=== PATIENT | male | born 1975 | race Two or more races ===

== ENCOUNTER 2018-03-26 09:46 | Emergency (ER) | payer OTHER ==
[2018-03-26 09:55] VITALS: BP 144/79
--- NOTE | 2018-03-26 10:23 | RAD ---
HISTORY: injured R ankle after fall COMPARISONS: None VIEWS: 3, Frontal, lateral, and oblique views of the right ankle FINDINGS: BONE DENSITY: Normal. BONES: There is no displaced fracture. JOINTS: There is no arthropathy. There is a tibiotalar effusion ALIGNMENT: There is no dislocation. SOFT TISSUES: There is mild circumferential soft tissue swelling. OTHER FINDINGS: None. IMPRESSION: JOINT EFFUSION. NO ACUTE OSSEOUS INJURY. IF SYMPTOMS PERSIST, RECOMMEND REPEAT IMAGING.
--- NOTE | 2018-03-26 11:16 | ED ---
Lower Extremity - HPI Summary HPI Summary: all gone patient is a 43-year-old male presenting to the ED after a fall last evening down the stairs injuring his right lateral ankle. He endorses a mild amount of swelling, denies ecchymosis. He remains ambulatory. Pain is currently rated a 5/10, constant and throbbing. Denies any other injuries at this time. He has never injured the ankle before. Motrin has helped recently. - History of Current Complaint Chief Complaint: EDExtremityLower Stated Complaint: RT ANKLE PAIN Time Seen by Provider: 03/26/18 09:59 Hx Obtained From: Patient Onset of Pain: Minutes Onset/Duration: Minutes Severity Initially: Moderate Severity Currently: Moderate Pain Intensity: 7 Pain Scale Used: 0-10 Numeric Timing: Constant Location: Is Discrete @ - left lateral ankle Character Of Pain: Aching Associated Signs And Symptoms: Positive: Swelling Aggravating Factor(s): Standing, Ambulation Alleviating Factor(s): Rest Able to Bear Weight: Yes - Risk Factors Gout Risk Factors: Age Over 40 DVT Risk Factors: Negative Septic Arthritis Risk Factor: Negative - Allergies/Home Medications Allergies/Adverse Reactions: Allergies Allergy/AdvReac Type Severity Reaction Status Date / Time Penicillins Allergy Hives Verified 03/26/18 09:52 PMH/Surg Hx/FS Hx/Imm Hx Previously Healthy: Yes Endocrine/Hematology History: Denies: Hx Diabetes Cardiovascular History: Denies: Hx Hypertension, Hx Pacemaker/ICD Respiratory History: Reports: Hx Sleep Apnea Denies: Hx Asthma Sensory History: Denies: Hx Hearing Aid Psychiatric History: Denies: Hx Panic Disorder - Surgical History Surgery Procedure, Year, and Place: APPY - Immunization History Hx Pertussis Vaccination: No Immunizations Up to Date: Unable to Obtain/Confirm Infectious Disease History: No Infectious Disease History: Denies: Traveled Outside the [place] in Last 30 Days - Family History Known Family History: Positive: Diabetes Negative: Cardiac Disease, Hypertension - Social History Occupation: Employed Full-time Lives: Dormitory/Roommates Alcohol Use: Occasionally Hx Substance Use: No Substance Use Type: Reports: None Smoking Status (MU): Never Smoked Tobacco Review of Systems Constitutional: Negative Negative: Fever, Chills, Skin Diaphoresis Negative: Palpitations, Chest Pain Negative: Shortness Of Breath, Cough Positive: Arthralgia, Myalgia Skin: Negative Neurological: Negative All Other Systems Reviewed And Are Negative: Yes Physical Exam Triage Information Reviewed: Yes Vital Signs On Initial Exam: Initial Vitals Temp Pulse Resp BP Pulse Ox 97.8 F 89 18 144/79 98 03/26/18 09:52 03/26/18 09:52 03/26/18 09:52 03/26/18 09:52 03/26/18 09:52 Vital Signs Reviewed: Yes Appearance: Positive: Well-Appearing, Well-Nourished Skin: Positive: Warm, Skin Color Reflects Adequate Perfusion Head/Face: Positive: Normal Head/Face Inspection Eyes: Positive: EOMI, MARCO ANTONIO, Conjunctiva Clear Neck: Positive: Supple Respiratory/Lung Sounds: Positive: Clear to Auscultation, Breath Sounds Present Cardiovascular: Positive: RRR, Pulses are Symmetrical in both Upper and Lower Extremities Musculoskeletal: Positive: Pain @ - right lateral ankle pain Neurological: Positive: Speech Normal Psychiatric: Positive: Normal AVPU Assessment: Alert Diagnostics - Vital Signs Vital Signs Temp Pulse Resp BP Pulse Ox 03/26/18 09:52 97.8 F 89 18 144/79 98 - Laboratory Lab Statement: Any lab studies that have been ordered have been reviewed, and results considered in the medical decision making process. Lower Extremity Course/Dx - Course Course Of Treatment: Course of treatment, the patient's evaluated for right lateral ankle injury. He feels he may have inverted the ankle while falling down the stairs yesterday. He remains ambulatory, with a mild amount of pain. X-ray obtained which shows mild soft tissue swelling to the lateral ankle. No fracture identified. He remains ambulatory, no crutches were given. Adebayo wrapped. Declines any ibuprofen. - Diagnoses Provider Diagnoses: Right ankle sprain Discharge - Sign-Out/Discharge Documenting (check all that apply): Patient Departure - Discharge Plan Condition: Stable Disposition: HOME Patient Education Materials: Ankle Sprain (DC) Referrals: Enoc Palomino MD [Primary Care Provider] - Additional Instructions: RICE: Rest, Ice, Compression, Elevate It appears you have sprained your ankle. No fracture was identified during this visit. Ibuprofen 600mg three times daily - do not exceed 3 days in a row If you continue to have symptoms - you may need further evaluation. Keep the area adebayo wrapped until symptoms improve. - Billing Disposition and Condition Condition: STABLE Disposition: Home
== END 2018-03-26 11:22 | disposition home or self-care (01) ==
LOC: ED 09:46
DX: S93.401A Sprain of unspecified ligament of right ankle, initial encounter (principal); W10.9XXA Fall (on) (from) unspecified stairs and steps, initial encounter; Y93.9 Activity, unspecified; Y92.9 Unspecified place or not applicable; Z88.0 Allergy status to penicillin; Z83.3 Family history of diabetes mellitus
CPT/HCPCS: 99281

== ENCOUNTER → 2019-03-02 16:14 | Emergency (ER) | payer OTHER ==
[2019-03-02 16:44] LABS: ABS Basophils 0.1 10^3/ul (0-0.2); ABS Eosinophils 0.1 10^3/ul (0-0.6); ABS Lymphocytes 2.2 10^3/ul (1.0-4.8); ABS Monocytes 0.5 10^3/ul (0-0.8); ABS Neutrophils 4.7 10^3/ul (1.5-7.7); Hematocrit 43 % (42-52); Hemoglobin 14.3 g/dL (14.0-18.0); Lymphocyte % 29.1 %; Mean Corpuscular HGB Conc 34 g/dL (31-36); Mean Corpuscular Hemoglobin 30 pg (27-31); Mean Corpuscular Volume 89 fL (80-94); Mean Platelet Volume 8.6 fL (7.4-10.4); Nucleated Red Blood Cells % 0.1; Platelet Count 261 10^3/uL (150-450); Red Cell Distribution Width 14 % (10-15); White Blood Count 7.7 10^3/uL (3.5-10.8)
[2019-03-02 16:51] LABS: INR 1.04 (0.82-1.09)
[2019-03-02 16:52] LABS: Albumin 4.4 g/dL (3.2-5.2); Albumin/Globulin Ratio 1.1 (1-3); Calcium 9.5 mg/dL (8.6-10.3); EGFR African American 114.4 (>60); EGFR Non-African American 94.5 (>60); Globulin 3.9 g/dL (2-4); Potassium 4.2 mmol/L (3.5-5.0); Total Bilirubin 0.6 mg/dL (0.2-1.0); Total Protein 8.3 g/dL (6.4-8.9)
--- NOTE | 2019-03-02 19:08 | ED ---
HPI Chest Pain - HPI Summary HPI Summary: Pt is a 43 y/o M presenting to the ED with a chief complaint of chest pain initially onset months ago, but today he got tired of having it so he came to be checked out. The pain is in the middle of his chest, rated at an 8/10 in severity when it comes on, described as tightness/squeezing, and radiating to the back. He reports occasional SOB. He denies nausea or diaphoresis. Cardiac Risks: neg HTN, DM, hyperlipidemia, smoking. + grandmother at age 45 of [place]. Home Medications Medication Instructions Recorded Confirmed Type NK [No Home Medications Reported] 08/17/13 08/17/13 History - History of Current Complaint Chief Complaint: EDChestPainROMI Time Seen by Provider: 03/02/19 18:31 Hx Obtained From: Patient, Family/Meter Maker - girlfriend Chastity Onset/Duration: Started Weeks Ago, Still Present Timing: Intermittent, Lasting Hours Initial Severity: Moderate Current Severity: None Pain Intensity: 0 Pain Scale Used: 0-10 Numeric Chest Pain Location: Mid Sternal Chest Pain Radiates: Yes Chest Pain Radiates To:: Back Character: Pressure/Squeezing, Tightness Aggravating Factor(s): Nothing Alleviating Factor(s): Nothing Associated Signs and Symptoms: Positive: Chest Pain, Shortness of Breath. Negative: Diaphoresis, Nausea - Allergy/Home Medications Allergies/Adverse Reactions: Allergies Allergy/AdvReac Type Severity Reaction Status Date / Time Penicillins Allergy Hives Verified 03/02/19 16:18 PMH/Surg Hx/FS Hx/Imm Hx Previously Healthy: Yes Endocrine/Hematology History: Denies: Hx Diabetes Cardiovascular History: Denies: Hx Hypertension, Hx Pacemaker/ICD Respiratory History: Reports: Hx Sleep Apnea - uses his CPAP Denies: Hx Asthma Psychiatric History: Denies: Hx Panic Disorder - Surgical History Surgery Procedure, Year, and Place: APPY Infectious Disease History: No Infectious Disease History: Denies: Traveled Outside the [place] in Last 30 Days - Family History Known Family History: Positive: Diabetes, Other - grandmother age 45 Negative: Cardiac Disease, Hypertension - Social History Alcohol Use: Occasionally Hx Substance Use: No Substance Use Type: Reports: None Hx Tobacco Use: No Smoking Status (MU): Never Smoked Tobacco Review of Systems Negative: Skin Diaphoresis Positive: Chest Pain Positive: Shortness Of Breath Negative: Nausea Positive: no symptoms reported Musculoskeletal: Negative Skin: Negative Neurological: Negative Psychological: Normal All Other Systems Reviewed And Are Negative: Yes Physical Exam - Summary Physical Exam Summary: Appearance: Well-appearing, no pain distress, well-nourished Skin: Warm, color reflects adequate perfusion, dry Head: Normal Head/Face inspection, atraumatic Eyes: Conjunctiva clear ENT: Normal inspection Neck: Supple, no nodes, no JVD Respiratory: Lungs clear, normal breath sounds, no respiratory distress Cardio: RRR, No murmur, pulses normal, brisk capillary refill Abdomen: Soft, nontender Bowel sounds: Present Musculoskeletal: Strength Intact/ROM intact, no calf tenderness, no edema. Psychological: Normal Neuro: Alert, muscle tone normal, no focal deficit Triage Information Reviewed: Yes Vital Signs On Initial Exam: Initial Vitals Temp Pulse Resp BP Pulse Ox 97.6 F 89 16 174/94 99 03/02/19 16:15 03/02/19 16:15 03/02/19 16:15 03/02/19 16:15 03/02/19 16:15 Vital Signs Reviewed: Yes Diagnostics - Vital Signs Vital Signs Temp Pulse Resp BP Pulse Ox 03/02/19 18:11 98.4 F 82 16 131/74 98 03/02/19 16:15 97.6 F 89 16 174/94 99 - Laboratory Lab Results: Lab Results 03/02/19 03/02/19 03/02/19 Range/Units 16:25 16:25 16:25 WBC 7.7 (3.5-10.8) 10^3/uL RBC 4.80 (4.18-5.48) 10^6 /uL Hgb 14.3 (14.0-18.0) g/dL Hct 43 (42-52) % MCV 89 (80-94) fL MCH 30 (27-31) pg MCHC 34 (31-36) g/dL RDW 14 (10-15) % Plt Count 261 (150-450) 10^3/uL MPV 8.6 (7.4-10.4) fL Neut % (Auto) 61.8 % Lymph % (Auto) 29.1 % Rolette % (Auto) 7.2 % Eos % (Auto) 1.0 % Baso % (Auto) 0.9 % Absolute Neuts (auto) 4.7 (1.5-7.7) 10^3/ul Absolute Lymphs (auto) 2.2 (1.0-4.8) 10^3/ul Absolute Monos (auto) 0.5 (0-0.8) 10^3/ul Absolute Eos (auto) 0.1 (0-0.6) 10^3/ul Absolute Basos (auto) 0.1 (0-0.2) 10^3/ul Absolute Nucleated RBC 0.0 10^3/ul Nucleated RBC % 0.1 INR (Anticoag Therapy) 1.04 (0.82-1.09) Sodium 139 (135-145) mmol/L Potassium 4.2 (3.5-5.0) mmol/L Chloride 104 (101-111) mmol/L Carbon Dioxide 28 (22-32) mmol/L Anion Gap 7 (2-11) mmol/L BUN 15 (6-24) mg/dL Creatinine 0.88 (0.67-1.17) mg/dL Est GFR ( Amer) 114.4 (>60) Est GFR (Non-Af Amer) 94.5 (>60) BUN/Creatinine Ratio 17.0 (8-20) Glucose 110 H (70-100) mg/dL Calcium 9.5 (8.6-10.3) mg/dL Total Bilirubin 0.60 (0.2-1.0) mg/dL AST 19 (13-39) U/L ALT 20 (7-52) U/L Alkaline Phosphatase 92 (34-104) U/L Troponin I 0.00 (<0.04) ng/mL Total Protein 8.3 (6.4-8.9) g/dL Albumin 4.4 (3.2-5.2) g/dL Globulin 3.9 (2-4) g/dL Albumin/Globulin Ratio 1.1 (1-3) Result Diagrams: 03/02/19 16:25 03/02/19 16:25 Lab Statement: Any lab studies that have been ordered have been reviewed, and results considered in the medical decision making process. - EKG 1621 Cardiac Rate: NL - 86bpm EKG Rhythm: Sinus Rhythm ST Segment: Non-Specific Ectopy: None Summary of EKG Findings: EKG at 1621 shows NSR at 86bpm with nml AV/IV CT, nml QTc, and nml axis. No acute changes. ED MD has reviewed and interpreted this EKG. Chest Pain Course/Dx - Course Course Of Treatment: Pt is a 43 y/o M presenting to the ED with a chief complaint of chest pain intermittently for months. The pain is in the middle of his chest, rated at an 8/10 in severity when it comes on, described as tightness /squeezing, and radiating to the back. He reports occasional SOB. He denies nausea or diaphoresis. Hx of sleep apnea, FHx grandmother at 45y/o, he does not smoke and drinking alcohol is rare. Pt will be signed out to Dr. Jerez at 1900 on 03/02/19 pending further workup. EKG at 1621 shows NSR at 86bpm with nml AV/IV CT, nml QTc, and nml axis. No acute changes. ED MD has reviewed and interpreted this EKG. Pt is pain free, and his girlfriend Chastity is with him at the time of sign-out, 0700 03/02/19 - Chest Pain Differential Diagnosis/HQI/PQRI: Acute GA, ACS, Angina, Chest Wall, GI Disease, Lower Respiratory Infection, Pulmonary Embolism - Diagnoses Provider Diagnoses: Chest pain Discharge - Sign-Out/Discharge Documenting (check all that apply): Sign-Out Patient Signing out patient TO: Linwood Jerez - 19003/02/19 Patient Received Moderate/Deep Sedation with Procedure: No - Discharge Plan Condition: Good Disposition: HOME Patient Education Materials: Chest Pain (ED) Referrals: Enoc Palomino MD [Primary Care Provider] - - Billing Disposition and Condition Condition: GOOD Disposition: Home - Attestation Statements Document Initiated by Scribe: Yes Documenting Scribe: Donna Price Provider For Whom Terry is Documenting (Include Credential): Dr. Izabela Nicholas MD. Scribe Attestation: Donna Weller scribed for Dr. Izabela Nicholas MD. on 03/03/19 at 0156. Scribe Documentation Reviewed: Yes Provider Attestation: The documentation as recorded by the Donna canales accurately reflects the service I personally performed and the decisions made by me, Dr. Izabela Nicholas MD. Status of Scribe Document: Viewed
--- NOTE | 2019-03-02 20:12 | ED ---
Progress - Progress Note Progress Note: This patient was signed out from Dr. Nicholas to Dr. Jerez at 19:00 03/02/19 pending troponin. The patient had CP for months that worsened today. An EKG was done upon arrival that was reportedly normal per Dr. Nicholas. The first troponin was negative and so if the 4 hour delta troponin and second troponin is negative the patient will be fit for discharge. The patient's troponin was 0.00 and the patient will be discharged home and follow up with his PCP. The patient is agreeable with this plan. Course/Dx - Course Course Of Treatment: This patient was signed out from Dr. Nicholas to Dr. Jerez at 19:00 03/02/19 pending troponin. The patient had CP for months that worsened today. An EKG was done upon arrival that was reportedly normal per Dr. Nicholas. The first troponin was negative and so if the 4 hour delta troponin and second troponin is negative the patient will be fit for discharge. The patient's troponin was 0.00 and the patient will be discharged home and follow up with his PCP. The patient is agreeable with this plan. - Diagnoses Provider Diagnoses: Chest pain Discharge - Sign-Out/Discharge Documenting (check all that apply): Patient Departure - DC, Receiving Sign-Out Receiving patient FROM: Izabela Nicholas Patient Received Moderate/Deep Sedation with Procedure: No - Discharge Plan Condition: Good Disposition: HOME Patient Education Materials: Chest Pain (ED) Referrals: Enoc Palomino MD [Primary Care Provider] - - Billing Disposition and Condition Condition: GOOD Disposition: Home - Attestation Statements Document Initiated by Terry: Yes Documenting Scribe: Jesse Banks Provider For Whom Terry is Documenting (Include Credential): Linwood Jerez MD Scribe Attestation: Jesse Weller scribed for Linwood Jerez MD on 03/03/19 at 0548. Scribe Documentation Reviewed: Yes Provider Attestation: The documentation as recorded by the Jesse canales accurately reflects the service I personally performed and the decisions made by me, Linwood Jerez MD Status of Scribe Document: Viewed
[2019-03-02 20:19] VITALS: BP 128/82
== END | disposition home or self-care (01) ==
LOC: ED 16:14
DX: R07.9 Chest pain, unspecified (principal); G47.30 Sleep apnea, unspecified; Z95.810 Presence of automatic (implantable) cardiac defibrillator; Z88.0 Allergy status to penicillin; Z82.49 Family history of ischemic heart disease and other diseases of the circulatory system
CPT/HCPCS: 36415; 80053; 84484; 85025; 85610; 93005; 99282

== ENCOUNTER → 2019-10-27 08:04 | Day surgery (SDC) | payer OTHER ==
[~2019-10-27 08:04] MED LIST: Acetaminophen TAB* 325 MG PO PRN; Buffered Lidocaine 1% SYRIN* 1 ML/SYRINGE INTRADERM ONE; Lactated Ringers 1000 ML Bag* 1,000 ML IV SCH; Lidocaine 2% PF * 5 ML VIAL ONE; Midazolam* 1 MG/ML 5 ML VIAL (5 MG) ONE; Ondansetron INJ* 2 MG/ML VIAL ONE; Propofol* 10 MG/ML 20 ML BTL ONE
[2019-10-27 11:49] VITALS: BP 128/76
--- NOTE | 2019-10-28 00:02 | PRO ---
CC: Dr. Enoc Palomino * ESOPHAGOGASTRODUODENOSCOPY AND COLONOSCOPY REPORT: DATE OF PROCEDURE: 10/27/19 - [facility] PRIMARY CARE PHYSICIAN: Dr. Enoc Palomino. INDICATION FOR PROCEDURE: Dysphagia, left lower quadrant pain. PROCEDURES PERFORMED: Complete esophagogastroduodenoscopy with biopsies and complete colonoscopy to the terminal ileum with biopsy polypectomy x2. MEDICATIONS GIVEN: Please see Anesthesia record. DESCRIPTION OF PROCEDURE: After the EGD and colonoscopy procedures, including the risks, benefits, and alternatives with the risks not limited to perforation , surgery, missed lesions, and/or were explained to the patient, written informed consent was obtained, IV medication was given, and a bite-block was placed between the teeth. The adult Olympus gastroscope was then inserted into the patient's oropharynx into the tubular esophagus. Tubular esophagus had LA- A erosive esophagitis. This was biopsied. Biopsies were also taken of the mid esophagus to rule out EoE. Scope was advanced through the lower esophageal sphincter into the stomach. Direct views showed antral-predominant gastritis. This was biopsied with CLOtesting. On retroflexion, a small 1 to 2 cm hiatal hernia was appreciated. Scope was then advanced through the widely patent pylorus into the duodenal bulb, C-loop, and distal duodenum. These were normal in appearance. Scope was then removed from the patient. He tolerated the procedure well. He was then rotated, given additional IV sedation medication, and a rectal exam was performed. The rectal exam was unremarkable. The adult Olympus colonoscope was then inserted into the patient's rectum and advanced very carefully through the entirety of the colon into the cecal base. Cecal base was carefully inspected and normal in appearance. The terminal ileum was identified and intubated x3 to 4 cm and normal. The scope was then returned to the cecum. A photograph was taken of the cecal cap. The quality of the preparation was good. Over the next 10 minutes, the scope was carefully withdrawn inspecting the mucosa. A polyp in the ascending colon was removed with biopsy polypectomy and a further polyp in the rectum was removed with biopsy polypectomy in entirety. There was mild left-sided diverticulosis coli. On return to the rectum, direct views were normal. On retroflexion, the views were normal as well. Scope was then removed from the patient. He tolerated the procedure well. He returned to the recovery room in stable condition. IMPRESSION: 1. Complete esophagogastroduodenoscopy with biopsies. 2. LA-A erosive reflux. 3. Small hiatal hernia. 4. Mild gastritis. 5. Normal duodenum. 6. Complete colonoscopy to the terminal ileum. 7. Biopsy polypectomy x2 as above. 8. Mild left-sided diverticulosis coli. 9. Good prep. RECOMMENDATIONS: Suspect fiber will help the pain on the left lower quadrant. Suspect that he is having difficulty with some stool through the diverticula in this area and this will be beneficial. In addition, recommend daily PPI therapy for the erosive reflux, which is likely the etiology of his dysphagia, although I will follow up on results of the biopsies. We will likely have him follow up with KALI Breaux, in the office for further management if ongoing issues. From a screening standpoint, he should have a repeat colonoscopy in 5 years' time given the two polyps removed today. [id number]/CPS #: [id number] KIMBERLY
== END | disposition home or self-care (01) ==
LOC: OR 08:04
PROVIDERS: ATTEND Internal Medicine Gastroenterology
DX: R13.10 Dysphagia, unspecified (principal); R10.32 Left lower quadrant pain; R93.3 Abnormal findings on diagnostic imaging of other parts of digestive tract; K20.8 Other esophagitis; D12.2 Benign neoplasm of ascending colon; K62.1 Rectal polyp
CPT/HCPCS: 87077; 88305; J2250; J2405; J2704